=== PATIENT | male | born 1940 | race Caucasian/White ===

== ENCOUNTER → 2021-01-19 | Outpatient (CLI) | payer MEDICARE, OTHER, SELFPAY ==
[2020-05-25 20:40] VITALS: BMI 29.5
--- NOTE | 2021-01-19 08:45 | LES_PTH ---
PATIENT: BENEDICTO LEON LOC: [facility] U#:[id number] AGE/SX: 80/M ROOM: RE01/19/[address]: Dr. Jefe Ocampo MD : 1940 BED: DIS: 01/19/2021 SPEC #: [id number] RECD: 01/19/21 14:51 STATUS: JOSÉ MIGUEL BRIDGES #: [id number] ARLETTE: 01/19/21 08:[address]: Jefe Ocampo DEPT: SURGICAL PATHOLOGY RECD BY: Michelle Oh Tissues: Skin, NOS Procedures: Surgery Specimen Level IV HEADER OPERATION: Gingival lesion biopsy PRE-OP DIAGNOSIS: Gingival lesion D37.09 TISSUE SUBMITTED: Gingival lesion MICROSCOPIC DIAGNOSIS Gingival lesion, biopsy: No tissue is identified in the container. See comment. BRANDON:carmen 01/21/2021 COMMENT No tissue is present in the container. This information is conveyed to Dr. Ocampo?s office on 01/20/21. Clinical correlation and appropriate follow up are necessary. MICROSCOPIC DESCRIPTION Slides are reviewed. GROSS DESCRIPTION Received in fixative is one container labeled with the patient's name and designated gingival lesion. The specimen consists of approximately 20 ml of clear fluid. Fluid is submitted for cell block preparation. Note: No tissue fragment is identified in the specimen container. / AM:carmen 01/20/21 TC: Cannot code CPT: 34788
== END | disposition home or self-care (01) ==
LOC: LABSPEC 15:03
PROVIDERS: Referring Provider Otolaryngology; Visit Provider Otolaryngology
DX: D37.09 Neoplasm of uncertain behavior of other specified sites of the oral cavity (principal)
CPT/HCPCS: 88305